=== PATIENT | female | born 1975 | race Caucasian/White ===

== ENCOUNTER 2024-07-19 13:01 | Emergency (ER) | payer OTHER ==
[~2024-07-19] VITALS: Ht 170.2 cm; Wt 73.0 kg
[~2024-07-19 13:01] MED LIST: PRED FORTE1 % OP; VICOPROFEN PO
[2024-07-19 13:17] VITALS: BP 116/78
[2024-07-19] MEDS ORDERED: KETOROLAC TROMETHAMINE 30 MG/ML SDV IM ONE (13:25)
[2024-07-19 13:30] VITALS: BP 106/77
[2024-07-19 13:45] VITALS: BP 114/72
[2024-07-19 14:00] VITALS: BP 99/66
[2024-07-19] MEDS ORDERED: PENICILLN VK500 MG PO (14:05)
[2024-07-19 14:13] VITALS: BP 99/66
== END 2024-07-19 14:24 | disposition home or self-care (01) | DRG 153 ==
LOC: ED 13:01
DX: J02.9 Acute pharyngitis, unspecified (principal); Z20.822 Contact with and (suspected) exposure to COVID-19
CPT/HCPCS: J1100